=== PATIENT | female | born 2000 | race Caucasian/White ===

== ENCOUNTER 2025-04-02 02:46 | Emergency (ER) | payer MEDICAID, SELFPAY ==
[2025-04-02 02:48] VITALS: BMI 37.8
[2025-04-02 03:15] VITALS: BP 123/86; PULSE 103; RESP 18; TEMP 36.6; O2SAT 100
--- NOTE | 2025-04-02 03:44 | PD.EDANX ---
ED Anxiety RME/HPI General Chief Complaint: General Adult/Misc Complain Stated Complaint: DIZZINESS SHAKY AFTER SNORTING COCAIN Time Seen by Provider: 04/02/25 03:37 Arrival date/time: 04/02/25 02:46 24F with history of drug use presents to ED with dizziness and shakiness after snorting cocaine today, which she hasn't done in a few years. Limitations: no limitations Related Data Home Medications ?Medication ?Instructions ?Recorded ?Confirmed prenat.vits,veronika,[id number] 1 tab PO QDAY 06/04/20 07/15/20 Previous Rx's ?Medication ?Instructions ?Recorded loratadine 10 mg tablet (Claritin) 10 mg PO QDAY #14 tabs 07/15/20 ibuprofen 800 mg tablet 800 mg PO Q8H pain #30 tabs 08/06/20 benzonatate 100 mg capsule 100 mg PO Q6H PRN cough #14 caps 04/29/22 Allergies Allergy/AdvReac Type Severity Reaction Status Date / Time No Known Allergies Allergy Verified 04/02/25 02:51 Review of Systems Review of Systems Systems Reviewed: All systems reviewed, normal except as documented ENT Ears, Nose, Mouth, and Throat: Reports as per HPI and Reports vertigo Neurologic Neurologic: Reports as per HPI, Reports tremor(s) and Reports vertigo Past Medical History Past Medical History NEUROLOGIC: Negative Neurological Disorders CARDIAC: Negative Cardiac Disorders or Congestive Heart Failure RESPIRATORY: Negative Chronic Obstructive Pulmonary Disease (COPD) GASTROINTESTINAL: Negative Gastrointestinal Disorders or Hepatitis GENITOURINARY: Negative Genitourinary Disorders or Renal Disease MUSCULOSKELETAL: Negative Musculoskeletal Disorders ENDOCRINE: Negative Endocrine Disorders, Diabetes Mellitus Type 1 or Diabetes Mellitus Type 2 HEMATOLOGIC: Negative Blood Disorders OTHER HISTORY: Negative Hospitalization, Autoimmune Disease, Down Syndrome, Developmental Delay, Shingles, Falls, MRSA, VRSA, Vancomycin-Resistant Enterococci, Human Immunodeficiency Virus (HIV), Chicken Pox, Measles, Mumps, Rubella ([place] Measles), Pertussis, Clostridium Difficile or Cancer Family History FAMILY HISTORY: Positive Family Respiratory Disorders (MOTHER-ASTHMA); Negative Family Psychiatric Problems, Family Cardiac Disorders, Family Gastrointestinal Problems, Family Cancer, Family Surgery or Family Anesthesia Reaction Social History SMOKING STATUS: Current some day smoker SECOND HAND EXPOSURE: Yes ED Exam General Limitations: Present no limitations General appearance: Present alert and anxious (mild) Head Head exam: Present atraumatic Eye Eye exam: Present normal appearance, PERRL and EOMI ENT ENT exam: Present mucous membranes moist Expanded ENT Exam Nasal speculum exam: Left: epistaxis (dried) Neck Neck exam: Present normal inspection, full ROM and trachea midline Chest Chest inspection: Present normal inspection and symmetric chest wall rise Neurological Exam Neurological exam: Present alert and oriented X3 Psychiatric Psychiatric exam: Present normal affect and anxious (mild) Skin Skin exam: Present warm, dry, intact and normal color Course Quality Measures none Vital Signs Vital signs: Vital Signs Temperature 97.8 F 04/02/25 03:15 Pulse Rate 103 H 04/02/25 03:15 Respiratory Rate 18 04/02/25 03:15 Blood Pressure 123/86 H 04/02/25 03:15 Pulse Oximetry (%) 100 04/02/25 03:15 Oxygen Delivery Method Room Air 04/02/25 03:15 Anxiety MDM Narrative MDM Narrative: 24F with history of drug use presents to ED with dizziness and shakiness after snorting cocaine today, which she hasn't done in a few years. Physical exam reveals mild dried blood in L nare. Normal pupil response and EOM. Gait normal. Speech normal. Patient is afebrile, alert, but mildly anxious. Filing Or Registry Clerk given. Patient data External records reviewed:: [facility] previous records Clinical information provided by:: patient Social determinants that could affect healthcare access:: substance use Patient has the following chronic illnesses:: drug use How is presenting disease/condition affected by chronic disease/condition?: caused by Evaluation data The following diagnostics were reviewed and interpreted by me:: other (specify) (none) Lab and/or radiology exams considered but not ordered:: not ordered Interpretation Summary: n/a Medications / Prescriptions Medications or Prescriptions considered but not ordered:: not ordered Medication administrations:: n/a Consultations Consultation(s) initiated? (list below): No Diagnosis Differential diagnosis anxiety: hyperventilation, panic disorder, acute anxiety and other (drug adverse effect) Most likely diagnosis given after review of the tests above:: drug adverse effect Admission Indicated Admission indicated?: not indicated Admission Request Was there a request for admission?: No Disposition Plan Disposition Plan: Discharge Discharge Attestation Discharge Attestation: The patient and all family members were given an opportunity to ask questions and understood the discharge instructions. Discharge instructions specifically effects, indications for sooner follow up or return to the emergency department, and the expected course of current diagnosis. Patient condition: Stable Discharge Plan Plan Patient Disposition: HOME (Self Care) Discharge Disposition comment: Stable Prescriptions/Referrals Prescriptions/Med Rec: No Action prenat.vits,veronika,hzo-ebmo-zpslo Tablet 1 tab PO QDAY loratadine [Claritin] 10 mg tablet 10 mg PO QDAY Qty: 14 0RF ibuprofen 800 mg tablet 800 mg PO Q8H Qty: 30 0RF benzonatate 100 mg capsule 100 mg PO Q6H PRN (Reason: cough) Qty: 14 0RF Problem List Clinical Impression: Adverse drug effect Patient/Caregiver Discharge Instructions Education Materials: ED Drug Reaction, Other Additional Instructions: Please follow-up with PCP within 24-48 hours and return immediately if symptoms worsen. No more drugs. :) Print Language: Lao Stand Alone Forms: Patient Portal Info Letter PA/ENTRY LEVEL DRAFTER Supervising Physician PA/ENTRY LEVEL DRAFTER Supervising Physician: Dr. Kirk
== END 2025-04-02 03:40 | disposition home or self-care (01) ==
LOC: SERX 03:52
PROVIDERS: Emergency Provider Emergency Medicine
DX: T40.5X1A Poisoning by cocaine, accidental (unintentional), initial encounter (principal); R42 Dizziness and giddiness
CPT/HCPCS: 99281